=== PATIENT | male | born 1955 | race Caucasian/White ===

== ENCOUNTER 2022-08-22 19:03 | Inpatient (IN) | payer OTHER ==
[2022-08-22 20:08] VITALS: BMI 37.5
[2022-08-22 21:03] LABS: VENOUS O2 SATURATION 64.5 % (70-80); VENOUS PCO2 35.4 mmHg (38-52); VENOUS PH 7.41 (7.310-7.410)
[2022-08-22 21:24] LABS: INR 1.49 (0.83-1.09); PROTHROMBIN TIME (PATIENT) 17.2 SEC (9.7-13.0)
[2022-08-22 21:27] LABS: ACTIVATED PTT 34.8 SECONDS (25.2-36.5)
[2022-08-22 21:29] LABS: CHLORIDE 108 mmol/L (98-107); SODIUM 141 mmol/L (136-145)
[2022-08-22 21:31] LABS: CALCIUM 8.8 mg/dL (8.5-10.1)
[2022-08-22 21:32] LABS: ALBUMIN 2.7 g/dl (3.4-5.0); ANION GAP 12 MMOL/L (8-16); BLOOD UREA NITROGEN 18.7 mg/dL (7-18); CO2 22 mmol/L (21-32); GLUCOSE,RANDOM 163 mg/dL (74-106)
[2022-08-22 21:35] LABS: CREATININE 1.2 mg/dL (0.55-1.3); SGOT/AST 110 U/L (15-37); SGPT/ALT 177 U/L (13-61)
[2022-08-22 21:37] LABS: BILIRUBIN,TOTAL 1.1 mg/dL (0.2-1); TOT PROT 7.6 g/dl (6.4-8.2)
[2022-08-22 21:38] LABS: ALK PHOS 62 U/L (45-117)
[2022-08-22 21:43] LABS: LACTIC ACID 2.8 mmol/L (0.4-2.0)
[2022-08-22] MEDS ORDERED: SODIUM CHLORIDE 0.9% 500 ML INFUS.BAG IV ONE (21:44)
[2022-08-22 21:46] LABS: BASO % 0.2 % (0-2.0); EOS % 0.1 % (0-4.5); HEMATOCRIT 42.9 % (35.4-49); HEMOGLOBIN 14.1 GM/dL (11.7-16.9); LYMPH % 8.3 % (8-40); MCH 28.7 pg (25.7-33.7); MCHC 32.8 g/dl (32.0-35.9); MEAN CELL VOLUME 87.6 fl (80-96); MONO % 6.8 % (3.8-10.2); NEUT % 84.6 % (42.8-82.8); PLATELET COUNT 174 10^3/uL (134-434); RDW 13.5 % (11.9-15.9); WHITE BLOOD COUNT 11.9 K/mm3 (4.0-10.0)
[2022-08-22] MEDS ORDERED: ACETAMINOPHEN INJECTION 100 ML IVPB ONE (21:50)
[2022-08-22] MEDS ORDERED: ASPIRIN 81 MG CHEWABLE TABLETS ONE (21:51)
[2022-08-22] MEDS ORDERED: HEPARIN NA (PORCINE) 5,000 UNITS/ML 1ML VIAL IVPUSH PRN ×2 (22:00)
[2022-08-22] MEDS ORDERED: HEPARIN NA (PORCINE) 5,000 UNITS/ML 1ML VIAL IVPUSH ONE (22:00)
[2022-08-22] MEDS ORDERED: HEPARIN NA (PORCINE) 5,000 UNITS/ML 1ML VIAL ONE (22:10)
[2022-08-22] MEDS: ASPIRIN 81 MG CHEWABLE TABLETS PO ONE ×2 (22:34→22:40)
[2022-08-22] MEDS ORDERED: HEPARIN INFUSION - 25,000 UNITS/500 ML INFUS.BAG IVPB ONE (22:41)
[2022-08-22] MEDS: HEPARIN - 25,000 UNIT in SODIUM CHLORIDE 495 ML IV SCH (23:00)
[2022-08-22 23:17] LABS: N-TERMINAL BNP 5220.7 pg/ml (5-125)
[2022-08-23 01:39] LABS: LACTIC ACID 2.2 mmol/L (0.4-2.0)
[2022-08-23 02:15] LABS: EPI CELLS 18 /uL (0-25.1); HYALINE CASTS 17 /uL (0-3.1); URINE APPEARANCE CLEAR; URINE BACTERIA 1 /uL (0-1359); URINE BILIRUBIN NEGATIVE (NEGATIVE); URINE COLOR DK YELLOW; URINE GLUCOSE (UA) NEGATIVE (NEGATIVE); URINE KETONE 1+ (NEGATIVE); URINE LEUK ESTERASE NEGATIVE (NEGATIVE); URINE NITRITE NEGATIVE (NEGATIVE); URINE PROTEIN 1+ (NEGATIVE); URINE WBC 31 /uL (0-25.8)
[2022-08-23 04:21] LABS: URINE RBC 23.1 /uL (0-23.9)
[2022-08-23] MEDS ORDERED: DEXAMETHASONE SOD PHOSPHATE 10 MG/1 ML VIAL IVPUSH SCH ×2 (04:30→10:00)
[2022-08-23] MEDS ORDERED: CEFTRIAXONE 1 GM in DEXTROSE 5%-WATER - 50 ML IVPB SCH (04:38)
[2022-08-23] MEDS ORDERED: DEXAMETHASONE SOD PHOSPHATE 4 MG/1 ML VIAL ONE (04:38)
[2022-08-23] MEDS ORDERED: AZITHROMYCIN IVPB 500 MG in DEXTROSE 5%-WATER - 250 ML IVPB SCH (04:44)
[2022-08-23] MEDS: INSULIN SLIDING SCALE (NOVOLOG) 1 VIAL SQ SCH ×2 (06:38→12:06)
[2022-08-23] MEDS ORDERED: AZITHROMYCIN IVPB 500 MG/250 ML BAG IVPB SCH (07:09)
[2022-08-23 08:48] LABS: CALCIUM 8.1 mg/dL (8.5-10.1)
[2022-08-23 08:50] LABS: ALBUMIN 2.3 g/dl (3.4-5.0); BLOOD UREA NITROGEN 17.3 mg/dL (7-18); MAGNESIUM 2.5 mg/dL (1.8-2.4)
[2022-08-23 08:52] LABS: CREATININE 0.8 mg/dL (0.55-1.3); PHOSPHOROUS 2.7 mg/dL (2.5-4.9)
[2022-08-23 08:54] LABS: BILIRUBIN,TOTAL 0.9 mg/dL (0.2-1); TOT PROT 6.6 g/dl (6.4-8.2)
[2022-08-23 10:07] LABS: ACTIVATED PTT 45.7 SECONDS (25.2-36.5); INR 1.34 (0.83-1.09); PROTHROMBIN TIME (PATIENT) 15.5 SEC (9.7-13.0)
[2022-08-23] MEDS: HEPARIN - 25,000 UNIT in SODIUM CHLORIDE 495 ML IV SCH (10:21)
[2022-08-23 14:31] VITALS: BP 120/72; PULSE 95; RESP 20; TEMP 97.6
== END 2022-08-23 16:55 | disposition short-term general hospital (02) | DRG 177 ==
LOC: JER 19:03 → JERBED 22:56 → J4S 08-23 06:16
PROVIDERS: ADMIT Internal Medicine; ATTEND Internal Medicine
DX: U07.1 COVID-19 (principal); I26.99 Other pulmonary embolism without acute cor pulmonale; J12.82 Pneumonia due to coronavirus disease 2019; J96.01 Acute respiratory failure with hypoxia; D68.59 Other primary thrombophilia; J90 Pleural effusion, not elsewhere classified; I82.402 Acute embolism and thrombosis of unspecified deep veins of left lower extremity; I24.8 Other forms of acute ischemic heart disease; R63.4 Abnormal weight loss; K80.20 Calculus of gallbladder without cholecystitis without obstruction; D72.829 Elevated white blood cell count, unspecified; I44.7 Left bundle-branch block, unspecified; R74.01 Elevation of levels of liver transaminase levels; E66.9 Obesity, unspecified; Z68.37 Body mass index [BMI] 37.0-37.9, adult
CPT/HCPCS: 0241U-QW; 36415; 71045-TC-FY; 71275-TC; 76705-TC; 80053; 81003; 82550; 82553; 82803; 82962; 83036; 83605; 83735; 83880; 84100; 84484; 85025; 85610; 85730; 86140; 86704; 86709; 86803; 86850; 86900; 86901; 87040; 87086; 87340; 87517; 93005; 93010; 93306-TC; 93970-TC; 99291; J1100; J1644; Q9967